=== PATIENT | male | born 1980 ===

== ENCOUNTER 2017-06-18 16:46 | Inpatient (IN) | payer MEDICAID ==
[2017-06-18 16:59] VITALS: BMI 19.8
[2017-06-18 17:31] LABS: SQUAMOUS EPITHIAL 1 /hpf (0-5); URINE BILIRUBIN NEGATIVE (NEGATIVE); URINE BLOOD NEGATIVE (NEGATIVE); URINE CLARITY Clear (Clear); URINE COLOR Yellow (YELLOW); URINE GLUCOSE (UA) NORMAL (Normal); URINE LEUKOCYTE ESTERASE NEG Leu/uL (Negative); URINE NITRATE NEGATIVE (NEGATIVE); URINE PROTEIN NEGATIVE (NEGATIVE); URINE UROBILINOGEN NORMAL mg/dL (0.2-1.0)
[2017-06-18 17:32] LABS: BASO # 0.1 K/uL (0.0-0.2); BASO % 0.7 % (0.0-2.0); EOS # 0.2 K/uL (0.0-0.7); EOS % 2.4 % (0.0-4.0); LYMPH # 2.2 K/uL (1.0-4.3); LYMPH % 30.6 % (20.0-40.0); MEAN CELL VOLUME 89.1 fL (80.0-94.0); MEAN CORPUSCULAR HEMOGLOBIN 29.5 pg (27.0-31.0); MEAN CORPUSCULAR HGB CONC 33.1 g/dL (33.0-37.0); MEAN PLATELET VOLUME 7.4 fL (7.2-11.7); MONO # 0.5 K/uL (0.0-0.8); MONO % 6.4 % (0.0-10.0); NEUT # 4.3 K/uL (1.8-7.0); NEUT % 59.9 % (50.0-75.0); NRBC % 0.1 % (0.0-2.0); RBC 4.42 Mil/uL (4.40-5.90); RED CELL DISTRIBUTION WIDTH 15.1 % (11.5-14.5); WHITE BLOOD COUNT 7.2 K/uL (4.8-10.8)
[2017-06-18 17:41] LABS: BARBITURATES, UR NEGATIVE (NEGATIVE); BENZODIAZEPINES, UR NEGATIVE (NEGATIVE); OPIATES, UR NEGATIVE (NEGATIVE); PHENCYCLIDINE, UR NEGATIVE (NEGATIVE)
[2017-06-18 17:48] LABS: ALB/GLOB RATIO 1.2 (1.0-2.1); ALT/SGPT 101 U/L (21-72); AST/SGOT 66 U/L (17-59); BLOOD UREA NITROGEN 11 mg/dL (9-20); CALCIUM 8.9 mg/dl (8.6-10.4); GFR AFRICAN-AMERICAN > 60; GFR NON-AFRICAN AMERICAN > 60
--- NOTE | 2017-06-18 18:15 | C.PDOC ---
History Of Present Illness <Moira Yu - Last Filed: 06/18/17 19:01> <James Ramey - Last Filed: 06/18/17 19:58> 37 year old male with a Hx of depression presents to the ER with a complaint of suicidal ideation. Patient states he had a panic attack while at the store today , he began crying, yelling, and states he heard voices telling him to kill himself. Denies physical complaints at this time. (Moira Yu) History Per: Patient History/Exam Limitations: no limitations Onset/Duration Of Symptoms: Hrs Current Symptoms Are (Timing): Still Present Suicide/Self Injury Attempted (Context): None Associated Symptoms: Depression, Suicidal Thoughts Involuntary Hold By: None Recent travel outside of the [place]: No <Moira Yu - Last Filed: 06/18/17 19:01> <James Ramey - Last Filed: 06/18/17 19:58> Chief Complaint (Nursing): Psychiatric Evaluation Past Medical History Reviewed: Historical Data, Nursing Documentation, Vital Signs - Medical History PMH: Depression Family History: States: Unknown Family Hx - Social History Hx Alcohol Use: No Hx Substance Use: Yes (marijuana) - Immunization History Hx Tetanus Toxoid Vaccination: No Hx Influenza Vaccination: No Hx Pneumococcal Vaccination: No <Moira Yu - Last Filed: 06/18/17 19:01> Vital Signs: Last Vital Signs Temp 97 F L 06/18/17 16:55 Pulse 66 06/18/17 16:55 Resp 18 06/18/17 16:55 BP 135/75 06/18/17 16:55 Pulse Ox 99 06/18/17 19:01 Review Of Systems Constitutional: Negative for: Fever, Chills Gastrointestinal: Negative for: Nausea, Vomiting, Diarrhea Psych: Positive for: Depression, Suicidal ideation <Moira Yu - Last Filed: 06/18/17 19:01> Physical Exam - Physical Exam Appears: Well, Non-toxic, No Acute Distress Skin: Normal Color, Warm, Dry Head: Atraumatic, Normacephalic Eye(s): bilateral: Normal Inspection Oral Mucosa: Moist Chest: Symmetrical, No Tenderness Cardiovascular: Rhythm Regular Respiratory: Normal Breath Sounds, No Rales, No Rhonchi, No Wheezing Gastrointestinal/Abdominal: Soft, No Tenderness Neurological/Psych: Oriented x3, Normal Speech <Moira Yu - Last Filed: 06/18/17 19:01> ED Course And Treatment - Laboratory Results Result Diagrams: 06/18/17 17:28 06/18/17 17:28 O2 Sat by Pulse Oximetry: 99 (Room air) Pulse Ox Interpretation: Normal Progress Note: Patient placed on 1 to 1. Blood work and urinalysis ordered, results were positive for cocaine and marijuana. Pending crisis evaluation. <Moira Yu - Last Filed: 06/18/17 19:01> - Laboratory Results Result Diagrams: 06/18/17 17:28 06/18/17 17:28 <James Ramey - Last Filed: 06/18/17 19:58> Disposition - Disposition Disposition Time: 19:01 <Moira Yu - Last Filed: 06/18/17 19:01> Discussed With : Amilcar Oconnor Comment: accepted the pt on his service and took over the care at 7:57PM Doctor Will See Patient In The: Hospital Counseled Patient/Family Regarding: Studies Performed, Diagnosis - POA Present On Arrival: None <James Ramey - Last Filed: 06/18/17 19:58> - Disposition Disposition: HOSPITALIZED Condition: FAIR Forms: [facility] (Chilean) - Clinical Impression Clinical Impression: Bipolar disorder, unspecified - PA / QUALITY CONTROL OPERATOR / Resident Statement MD/DO has reviewed & agrees with the documentation as recorded. - Scribe Statement The provider has reviewed the documentation as recorded by the Scribe <Moira Yu - Last Filed: 06/18/17 19:01> <James Ramey - Last Filed: 06/18/17 19:58> - Scribe Statement Kang Aponte All medical record entries made by the Scribe were at my direction and personally dictated by me. I have reviewed the chart and agree that the record accurately reflects my personal performance of the history, physical exam, medical decision making, and the department course for this patient. I have also personally directed, reviewed, and agree with the discharge instructions and disposition. (Moira Yu) Physician Patient Turnover Patient Signed Over To: James Ramey Handoff Comments: dispo <Moira Yu - Last Filed: 06/18/17 19:01> Decision To Admit <Moira Yu - Last Filed: 06/18/17 19:01> - Pt Status Changed To: Hospital Disposition Of: Inpatient - Admit Certification Admit to Inpatient:: After my assessment, the patient will require hospitalization for at least two midnights. This is because of the severity of symptoms shown, intensity of services needed, and/or the medical risk in this patient being treated as an outpatient. - InPatient: Physician Admission Certification: I certify that this patient requires 2 or more midnights of care for the following reason:: After my assessment, the patient will require hospitalization for at least two midnights. This is because of the severity of symptoms shown, intensity of services needed, and/or the medical risk in this patient being treated as an outpatient. - . Bed Request Type: Psychiatry Admitting Physician: Amilcar Oconnor <James Ramey - Last Filed: 06/18/17 19:58> - . Patient Diagnosis: Bipolar disorder, unspecified
[2017-06-18 20:46] VITALS: O2SAT 100
--- NOTE | 2017-06-18 22:54 | PCM.BM ---
<Kimani Cross - Last Filed: 06/18/17 22:53> Treatment Plan Problems - Problems identified on initial assessmt Auditory Hallucinations Date Initiated: 06/18/17 Time Initiated: 21:10 Assessment reference: NA Depression Date Initiated: 06/18/17 Time Initiated: 21:10 Assessment reference: NA Treatment assets and liabiliti Patient Assests: physically healthy Patient Liabilities: substance abuse (Marijuana, Cocaine) - Milieu Protocol Maintain good personal hygiene: daily Encourage regular showers, daily Remind patient to perform daily oral care Conduct patient checks and document Observation sheet: Q15 minutes Maintain personal safety: every shift Educate patient to report safety concerns to staff, every shift Monitor environment for contraband/sharps Medication safety: Monitor for expected outcome, potential side effects: every shift, Assess barriers to learning: every shift, Assess readiness for medication education: every shift <Lanie Maya - Last Filed: 06/19/17 10:19> Discharge/Continuing Care - Education Needs Education Needs: Patient Medication, Patient Coping Skills - Discharge Discharge Criteria: Tolerates medication w/o severe side effects, Reduction of target symptoms
--- NOTE | 2017-06-19 10:12 | PCM.PSYCH ---
Initial Psychiatric Evaluation - Initial Psychiatric Evaluation Type of Admission: Voluntary Legal Status: Capacity Chief Complaint (in patient's own words): i was feeling suicidal.' History of Present Illness and Precipitating Events: The patient is a 37 y/o AAM who present to ED for suicidal ideation and auditory hallucination telling him to kill himself. The patient was recently hospitalized at [facility] approximately 2 weeks ago for suicidal ideation and auditory hallucination. The patient was discharged and referred to outpatient which the patient does not recall the name of the outpatient provider. The patient was also prescribed medication, but the patient also cannot recall the name of the medication, but reports it was possibly Risperdal. The patient is not compliant with following up with outpatient provider or taking medication prescribed from [facility]. The patient is 2015 reports while residing in [place] engaged in self-mutilation by cutting and also reports having suicidal ideation, but was never hospitalized. The patient has substance abuse history and reports using Marijuana and Cocaine. The patients last use of Marijuana and Cocaine is approximately 1 month ago. The patient has no medical problems and is not taking any medications. The patient continues to endorse SI with and auditory hallucination. He reports depressed mood and feelings of hopelessness and helplessness. Patient remained isolated, and withdrawn and reports poor sleep. Current Medications: Active Medications Generic Name Dose Route Start Last Admin Trade Name Freq PRN Reason Stop Dose Admin Hydroxyzine HCl 50 mg 06/19/17 00:50 Atarax PO Q6H PRN Anxiety Ibuprofen 600 mg 06/19/17 00:50 Motrin Tab PO Q6H PRN Pain, moderate (4-7) Quetiapine Fumarate 100 mg 06/18/17 22:15 06/18/17 22:30 Seroquel PO 100 mg HS KT Administration Trazodone HCl 100 mg 06/19/17 00:50 Desyrel PO HS PRN Insomnia Past Psychiatric History - Past Psychiatric History Previous Treatment History: Inpatient Pertinent Medical Hx (Current Medical&Sleep Prob, Allergies): Allergies Allergy/AdvReac Type Severity Reaction Status Date / Time No Known Allergies Allergy Verified 06/18/17 16:58 Antidepressant 06/18/17 Mood Medicine 06/18/17 Review of Systems - Review of Systems All systems: reviewed and no additional remarkable complaints except - Psychiatric Psychiatric: Anxiety, Irritability, Suicidal Ideation Mental Status Examination - Personal Presentation Personal Presentation: Looks stated age - Affect Affect: Constricted, Depressed - Motor Activity Motor Activity: Psychomotor Retardation - Reliability in Providing Information Reliability in Providing Information: Poor, due to alteration in thoughts, Poor , due to altered mood - Speech Speech: Organized - Mood Mood: Depressed, Anxious - Formal Thought Process Formal Thought Process: Hallucinations, Delusions, Paranoia, Loosening of associations - Hallucinations/Delusions Hallucinations: Auditory Delusions: Persecution - Obsessions/Compulsions Obsessions: No Compulsions: No - Cognitive Functions Orientation: Person, Place, Situation, Time Sensorium: Alert Attention/Concentration: Attentive Abstract Thinking: [place] Estimate of Intelligence: Below average Judgement: Imparied, as evidence by: Poor judgement, Imparied, as evidence by: Lack of insight into illness - Risk Risk: Suicidal, Diminished functioning - Limitations Limitations: Living alone DSM 5 DX - DSM 5 DSM 5 Diagnosis: Major depressive disorder recurrent severe with psychotic features r/o Schizoaffective disorder depressed type Cannabis use disorder moderate Cocaine use disorder severe - Recommended/Plan of Treatment Treatment Recommendations and Plan of Treatment: Major depressive disorder recurrent severe with psychotic features r/o Schizoaffective disorder depressed type CBT Psychoeducation Supportive therapy, group therapy, individual therapy Trazodone 100 mg PO QHS Seroquel 100 mg po QHS Start Risperdal 1 gm PO BID Cogentin 1 mg PO BID Cannabis use disorder moderate CBT Psychoeducation Supportive therapy, individual therapy Use [place] for abstinence Cocaine use disorder severe CBT Psychoeducation Supportive therapy, individual therapy Use [place] for abstinence - Smoking Cessation Smoking Cessation Initiated: No
[2017-06-20 16:15] VITALS: RESP 18
--- NOTE | 2017-06-20 19:07 | PCM.PYCHPN ---
Psychiatric Progress Note - Psychiatric Progress Note Patient seen today, length of contact: 15 minutes Patient Chief Complaint: I'm feeling better and I want to be discharged. Problems Identified/Issues Discussed: Patient seen, chart reviewed, case discussed with the staff. Issues related to illness and treatment were discussed with the patient. Reported compliant with treatment with no adverse affects. Tolerating treatment very well. Patient reported feeling better with the treatment. Patient wanted to be discharged as he wants to go to [facility] where he was under treatment before. During evaluation patient became angry and irritable, needed security and Haldol when necessary. After this intervention patient became calm and stayed in his room. Patient already has signed 48 hour notice for discharge ending tomorrow. At the time of evaluation, patient was awake alert oriented 3, had no delusions , no auditory or visual hallucinations, no suicidal ideations or homicidal ideations. Aftercare discussed with the patient. Medical Problems: None reported Diagnostic Results: Reviewed DSM 5 Symptoms Update: Improvement with treatment Medication Change: No Medical Record Reviewed: Yes Mental Status Examination - Cognitive Function Orientation: Person, Place, Situation, Time Memory: Intact Attention: WNL Concentration: WNL Association: [facility] Fund of Knowledge: [facility] Decription of patient's judgement and insights: Fair - Mood Mood: Anxious (Less than before) - Affect Affect: Other (Appropriate) - Speech Speech: Appropriate - Formal Thought Process Formal Thought Process: No Impairment Psychotic Thoughts and Behaviors: Denied - Suicidal Ideation Suicidal Ideation: No - Homicidal Ideation Homicidal Ideation: No Goal/Treatment Plan - Goal/Treatment Plan Need for Continued Stay: Remain at risks for inpatient hospitalization, Discharge may exacerbated symptoms, Severe functional impairment Progress Toward Problem(s) and Goals/Treatment Plan: Patient education Supportive therapy Continue treatment as before Patient already signed 48 hour notice for discharge ending tomorrow, if stable will discharge tomorrow. Patient wants to go to [facility] for follow-up. Estimated Date of D/C: 06/21/17 - Smoking Cessation Smoking Cessation Initiated: No
[2017-06-21 06:06] VITALS: BP 117/67; PULSE 68; TEMP 98.1
--- NOTE | 2017-06-21 19:30 | PCM.PYCHDC ---
Mental Status Examination - Mental Status Examination Orientation: Person, Place, Situation, Time Memory: Intact Mood: Neutral Affect: Other (Appropriate) Speech: Soft Attention: WNL Concentration: WNL Association: WNL Fund of Knowledge: WNL Formal Thought Process: No Impairment Description of patient's judgement and insight: Fair Psychotic Thoughts and Behaviors: None Suicidal Ideation: No Current Homicidal Ideation?: No Discharge Summary - Discharge Note Reason for Hospitalization: Major depressive disorder recurrent severe with psychotic features Cannabis use disorder for treatment Cocaine use disorder severe Laboratory Data: Reviewed Consultations:: List each consultation separately and include: 1. Reason for request. 2. Findings. 3. Follow-up Summary of Hospital Course include:: 1. Description of specific treatment plan utilized for patients during their course of treatmen. 2. Summarize the time- course for resolution of acute symptoms and/or regressed behaviors. 3. Describe issues identified and worked on during hospitalization. 4. Describe medication utilized. 5. Describe medical problems identified and treated. 6. Reassessment of suicide risk Summary of Hospital Course: The patient was recently hospitalized at [facility] approximately 2 weeks ago for suicidal ideation and auditory hallucination. The patient was discharged and referred to outpatient which the patient does not recall the name of the outpatient provider. The patient was also prescribed medication, but the patient also cannot recall the name of the medication, but reports it was possibly Risperdal. The patient is not compliant with following up with outpatient provider or taking medication prescribed from [facility]. The patient is 2015 reports while residing in [place] engaged in self-mutilation by cutting and also reports having suicidal ideation, but was never hospitalized. The patient has substance abuse history and reports using Marijuana and Cocaine. The patients last use of Marijuana and Cocaine is approximately 1 month ago. The patient has no medical problems and is not taking any medications. The patient continues to endorse SI with and auditory hallucination. He reports depressed mood and feelings of hopelessness and helplessness. Patient remained isolated, and withdrawn and reports poor sleep. During his stay in the hospital patient was treated with Celexa and Risperdal. Patient also started on other when necessary medications. Patient signed 48 hour notice for discharge from the hospital ended today. Patient started feeling better. Yesterday patient became angry because of discharge issues. Needed to call security, patient received Haldol when necessary, became calm and no visual disturbance that after until discharge. Patient denied any suicidal or homicidal ideations at the time of evaluation and discharge. Patient denied any auditory visual hallucinations or any delusions. Patient refuses to take prescriptions at discharge, reported he has medications. Patient was discharged in a stable condition. Patient was awake alert oriented 3. Patient will go to [facility] for follow-up care. - Final Diagnosis (DSM 5) Condition upon Discharge: FAIR Disposition: HOME/ ROUTINE - Smoking Cessation Smoking Cessation Medication prescribed: No - Antipsychotic Medications Pt discharged on 2 or more routine antipsychotic medications: No
== END 2017-06-21 15:12 | disposition home or self-care (01) | DRG 430 ==
LOC: C.ER 16:46 → C.5E 19:56
PROVIDERS: ADMIT Psychiatry & Neurology Psychiatry; ATTEND Psychiatry & Neurology Psychiatry
PROC: GZ58ZZZ Individual Psychotherapy, Cognitive-Behavioral (ICD-10-PCS; principal; 2017-06-18)
PROC: GZ56ZZZ Individual Psychotherapy, Supportive (ICD-10-PCS; 2017-06-18)
DX: F33.3 Major depressive disorder, recurrent, severe with psychotic symptoms (principal); F14.20 Cocaine dependence, uncomplicated; R45.851 Suicidal ideations; F12.20 Cannabis dependence, uncomplicated